=== PATIENT | male | born 1955 | race Caucasian/White ===

== ENCOUNTER → 2016-09-07 | Outpatient (CLI) | payer MEDICAID ==
[~2016-09-07] VITALS: Ht 205.7 cm; Wt 122.5 kg
[~2016-09-07] MED LIST: AMIO100T3 OR; ASPI-231 PO; ESCI10TA PO; LORA2CON PO; LOSA25TA9 PO; SPIR50TA23 PO; ZOLP5TAB5 PO
[2016-09-07 09:10] VITALS: BP 101/64
[2016-09-07 09:35] VITALS: BP 110/59
[2016-09-07 12:17] LABS: Basophils # (auto) 0.1 uL; Basophils % (auto) 0.6 % (0.0-2.0); Eosinophils # (auto) 0.2 uL; Eosinophils % (auto) 2.2 % (0.0-7.0); Hemoglobin 14.9 g/dL (13.5-17.5); Lymphocytes % (auto) 20.4 % (10.0-50.0); Mean Corpuscular Hemoglobin 31.2 pg (28.0-32.0); Mean Corpuscular Hgb Conc. 33.2 g/dL (32.0-36.0); Mean Platelet Volume 10.9 fL (7.4-10.4); Monocytes # (auto) 0.8 uL; Monocytes % (auto) 8.2 % (0.0-12.0); Neutrophils # (auto) 6.8 uL; Neutrophils % (auto) 68.6 % (37.0-80.0); Platelet Count (auto) 232 10^3/uL (140-450); Red Cell Distribution Width 13.7 % (11.6-16.0); White Blood Cell 9.9 10^3/uL (4.4-10.8)
[2016-09-07 12:23] LABS: Partial Thromboplastin Time 25.5 sec (22.64-33.71); Prothrombin Time 10.3 sec (9.37-12.3)
[2016-09-07 12:36] LABS: BUN/Creatinine Ratio 21.7; Calcium 9.2 mg/dL (8.5-10.1); Potassium 4.5 mmol/L (3.5-5.1)
== END | disposition home or self-care (01) ==
LOC: Rad HDHVI 08:58
PROVIDERS: ATTEND Internal Medicine Cardiovascular Disease
DX: I10 Essential (primary) hypertension (principal); D64.9 Anemia, unspecified; R79.1 Abnormal coagulation profile
CPT/HCPCS: 36415; 71020; 80048; 85025; 85610; 85730; 93005; G0463

== ENCOUNTER 2016-10-11 18:16 | Inpatient (IN) | payer MEDICAID ==
[~2016-10-11] VITALS: Ht 205.7 cm; Wt 125.9 kg
[2016-10-11 19:43] LABS: Basophils # (auto) 0 uL; Basophils % (auto) 0.4 % (0.0-2.0); Eosinophils # (auto) 0.2 uL; Eosinophils % (auto) 1.6 % (0.0-7.0); Hematocrit 44.7 % (41.0-53.0); Hemoglobin 15.2 g/dL (13.5-17.5); Lymphocytes # (auto) 2.5 uL; Lymphocytes % (auto) 25.7 % (10.0-50.0); Mean Corpuscular Hemoglobin 31.5 pg (28.0-32.0); Mean Corpuscular Hgb Conc. 33.9 g/dL (32.0-36.0); Mean Corpuscular Volume 93.1 fL (80.0-100.0); Mean Platelet Volume 10.7 fL (7.4-10.4); Monocytes # (auto) 0.8 uL; Neutrophils # (auto) 6.4 uL; Neutrophils % (auto) 64.3 % (37.0-80.0); Platelet Count (auto) 208 10^3/uL (140-450); Red Cell Distribution Width 13.6 % (11.6-16.0); White Blood Cell 9.9 10^3/uL (4.4-10.8)
[2016-10-11 20:04] LABS: Albumin 3.8 g/dL (3.4-5.0); Anion Gap 7 (5-15); Aspartate Aminotransferase 29 U/L (15-37); BUN/Creatinine Ratio 17.7; Blood Urea Nitrogen 29 mg/dL (7-18); Calcium 8.4 mg/dL (8.5-10.1); Carbon Dioxide 24 mmol/L (21-32); Chloride 104 mmol/L (98-107); GFR African American 55 mL/min; GFR Non-African American 46 mL/min; Glucose 87 mg/dL (74-106); Magnesium 2.4 mg/dL (1.6-2.6); Potassium 4.5 mmol/L (3.5-5.1); Sodium 135 mmol/L (136-145)
[2016-10-11 20:09] LABS: Alkaline Phosphatase 100 U/L (45-117); Bilirubin, Total 0.7 mg/dL (0.2-1.0); Total Protein 7.2 g/dL (6.4-8.2)
[2016-10-11] MEDS ORDERED: SODIUM CHLORIDE 0.9% 1,000 ML IV ONE (21:10)
[2016-10-11] MEDS ORDERED: ASPirin 81 mg TAB PO ONE (21:15)
[2016-10-12] VITALS (7 sets, daily range): BP systolic 102–129; BP diastolic 75–87
[2016-10-12] MEDS ORDERED: AMIODARONE HCL 200 MG TAB PO ONE (01:00)
[2016-10-12] MEDS ORDERED: ACETAMINOPHEN 325 MG TAB PO PRN (05:15)
[2016-10-12] MEDS ORDERED: SPIRONOLACTONE 25 MG TAB PO SCH (10:00)
[2016-10-12] MEDS ORDERED: ASPirin-EC 81 mg tab PO SCH (10:00)
[2016-10-12] MEDS ORDERED: AMIODARONE HCL 200 MG TAB PO SCH (10:00)
[2016-10-12] MEDS ORDERED: LOSARTAN POTASSIUM 25 MG TAB PO PRN (10:00)
[2016-10-12] MEDS ORDERED: LORazepam 0.5 MG TAB PO SCH (22:00)
[2016-10-12] MEDS ORDERED: ZOLPIDEM TARTRATE 5 MG TAB PO SCH (22:00)
== END 2016-10-12 15:42 | disposition home or self-care (01) | DRG 204 ==
LOC: ER 18:16 → TELE 18:17 → TELE-WESTW 10-12 01:38
PROVIDERS: ADMIT Internal Medicine Cardiovascular Disease; ATTEND Internal Medicine Cardiovascular Disease
DX: R55 Syncope and collapse (principal); I11.0 Hypertensive heart disease with heart failure; I50.9 Heart failure, unspecified; R07.89 Other chest pain; I25.10 Atherosclerotic heart disease of native coronary artery without angina pectoris; G62.9 Polyneuropathy, unspecified; J44.9 Chronic obstructive pulmonary disease, unspecified; F41.9 Anxiety disorder, unspecified; H53.8 Other visual disturbances; Z87.891 Personal history of nicotine dependence; I25.2 Old myocardial infarction; Z79.899 Other long term (current) drug therapy; Z95.0 Presence of cardiac pacemaker; Z95.5 Presence of coronary angioplasty implant and graft
CPT/HCPCS: 36415; 70450; 71010; 80053; 83735; 84484; 85025; 87081; 93005; 93886; 96360; 96361; 99291

== ENCOUNTER → 2016-10-23 | Outpatient (CLI) | payer MEDICAID | END | disposition home or self-care (01) | LOC: Rad HDHVI 10:49 | PROVIDERS: ATTEND Internal Medicine Cardiovascular Disease | DX: I70.0 Atherosclerosis of aorta (principal); M47.814 Spondylosis without myelopathy or radiculopathy, thoracic region; Z95.0 Presence of cardiac pacemaker | CPT/HCPCS: 71020 ==

== ENCOUNTER → 2016-11-20 | Outpatient (CLI) | payer MEDICAID ==
[2016-11-20 10:15] VITALS: BP 108/75
[2016-11-20 11:00] VITALS: BP 104/71
[2016-11-20 12:19] LABS: Basophils # (auto) 0 uL; Basophils % (auto) 0.6 % (0.0-2.0); Eosinophils # (auto) 0.2 uL; Eosinophils % (auto) 1.8 % (0.0-7.0); Hematocrit 46.4 % (41.0-53.0); Hemoglobin 15.8 g/dL (13.5-17.5); Lymphocytes # (auto) 2.1 uL; Lymphocytes % (auto) 24.1 % (10.0-50.0); Mean Corpuscular Hemoglobin 31.6 pg (28.0-32.0); Mean Corpuscular Hgb Conc. 33.9 g/dL (32.0-36.0); Mean Corpuscular Volume 93.1 fL (80.0-100.0); Mean Platelet Volume 10.6 fL (7.4-10.4); Monocytes # (auto) 0.8 uL; Monocytes % (auto) 9.1 % (0.0-12.0); Neutrophils # (auto) 5.6 uL; Neutrophils % (auto) 64.4 % (37.0-80.0); Platelet Count (auto) 220 10^3/uL (140-450); White Blood Cell 8.7 10^3/uL (4.4-10.8)
[2016-11-20 12:41] LABS: INR 0.94 (0.9-1.15); Partial Thromboplastin Time 26.4 sec (22.64-33.71); Prothrombin Time 10.2 sec (9.37-12.3)
[2016-11-20 12:53] LABS: BUN/Creatinine Ratio 18.9; Calcium 8.8 mg/dL (8.5-10.1); Potassium 4.6 mmol/L (3.5-5.1)
== END | disposition home or self-care (01) ==
LOC: Rad HDHVI 09:51
PROVIDERS: ATTEND Internal Medicine Cardiovascular Disease
DX: I10 Essential (primary) hypertension (principal); D64.9 Anemia, unspecified; R79.1 Abnormal coagulation profile; Z01.812 Encounter for preprocedural laboratory examination
CPT/HCPCS: 36415; 71020; 80048; 85025; 85610; 85730; 93005; G0463

== ENCOUNTER → 2016-11-30 | Outpatient (CLI) | payer MEDICAID ==
[~2016-11-30] MED LIST changes: +diphenhdrAMINE HCL 50 MG/1 ML VL IM ONE; +diphenhdrAMINE HCL 50 MG/1 ML VL ONE
[2016-11-30 11:15] VITALS: BP 98/65
[2016-11-30 12:15] VITALS: BP 121/81
[2016-11-30 17:12] LABS: Basophils # (auto) 0 uL; Basophils % (auto) 0.5 % (0.0-2.0); Eosinophils # (auto) 0.1 uL; Eosinophils % (auto) 1.4 % (0.0-7.0); Hematocrit 46.5 % (41.0-53.0); Lymphocytes # (auto) 1.8 uL; Mean Corpuscular Hemoglobin 32.3 pg (28.0-32.0); Mean Corpuscular Hgb Conc. 34.4 g/dL (32.0-36.0); Mean Platelet Volume 10.7 fL (7.4-10.4); Monocytes # (auto) 0.9 uL; Monocytes % (auto) 10.5 % (0.0-12.0); Neutrophils # (auto) 5.6 uL; Neutrophils % (auto) 66.6 % (37.0-80.0); Platelet Count (auto) 218 10^3/uL (140-450); Red Cell Distribution Width 13.5 % (11.6-16.0); White Blood Cell 8.5 10^3/uL (4.4-10.8)
[2016-11-30 17:13] LABS: Urine Bilirubin Negative (Negative); Urine Blood Negative /uL (Negative); Urine Color Yellow (Yellow); Urine Glucose Normal (Normal); Urine Ketone Negative (Negative); Urine Nitrite Negative (Negative); Urine Urobilinogen Normal (Negative); Urine pH 6.5 (5.0-8.0)
[2016-11-30 17:30] LABS: BUN/Creatinine Ratio 19.3; Magnesium 2.4 mg/dL (1.6-2.6); Potassium 4.6 mmol/L (3.5-5.1)
== END | disposition home or self-care (01) ==
LOC: CHF HDHVI 11:14
PROVIDERS: ATTEND Internal Medicine Cardiovascular Disease
DX: I10 Essential (primary) hypertension (principal); E83.42 Hypomagnesemia; D64.9 Anemia, unspecified; N39.0 Urinary tract infection, site not specified
CPT/HCPCS: 36415; 80048; 81003; 83735; 85025; 87086; G0463

== ENCOUNTER → 2017-01-13 | Outpatient (CLI) | payer MEDICAID ==
[~2017-01-13] MED LIST changes: -diphenhdrAMINE HCL 50 MG/1 ML VL IM ONE; -diphenhdrAMINE HCL 50 MG/1 ML VL ONE
== END | disposition home or self-care (01) ==
LOC: Rad HDHVI 08:54
PROVIDERS: ATTEND Internal Medicine Cardiovascular Disease
DX: I10 Essential (primary) hypertension (principal); I49.5 Sick sinus syndrome
CPT/HCPCS: 93306

== ENCOUNTER 2017-02-08 15:45 | Inpatient (IN) | payer MEDICAID ==
[~2017-02-08] VITALS: Ht 205.7 cm; Wt 133.2 kg
[~2017-02-08 15:45] MED LIST changes: -AMOX; -HYDR-4663 PO; -LOSARTAN; -SPIR25TA89 PO; -ZOLP12.564 PO
[2017-02-08] MEDS ORDERED: SPIR25TA89 PO (16:01)
[2017-02-08] MEDS ORDERED: LOSARTAN (16:01)
[2017-02-08] MEDS ORDERED: AMOX (16:01)
[2017-02-08] MEDS ORDERED: ASPirin 81 mg TAB PO ONE (16:45)
[2017-02-08 17:05] LABS: Basophils # (auto) 0 uL; Basophils % (auto) 0.4 % (0.0-2.0); Eosinophils # (auto) 0.1 uL; Eosinophils % (auto) 1.4 % (0.0-7.0); Hematocrit 47.1 % (41.0-53.0); Lymphocytes # (auto) 2.5 uL; Lymphocytes % (auto) 25.2 % (10.0-50.0); Monocytes # (auto) 0.9 uL; Monocytes % (auto) 9.4 % (0.0-12.0); Neutrophils # (auto) 6.2 uL; Neutrophils % (auto) 63.6 % (37.0-80.0); White Blood Cell 9.8 10^3/uL (4.4-10.8)
[2017-02-08 17:06] LABS: CONDITION Y; Mean Corpuscular Volume 94.2 fL (80.0-100.0); Mean Platelet Volume 9.5 fL (7.4-10.4); Platelet Count (auto) 242 10^3/uL (140-450); Red Cell Distribution Width 13.6 % (11.6-16.0)
[2017-02-08 17:23] LABS: INR 0.95 (0.9-1.15); Partial Thromboplastin Time 25.8 sec (22.64-33.71); Prothrombin Time 10.4 sec (9.37-12.3)
[2017-02-08] MEDS ORDERED: MORPHINE SULF INJ 2 MG/ML SYRINGE 1ML IV PRN (17:30)
[2017-02-08] MEDS ORDERED: ZOLPIDEM TARTRATE 5 MG TAB PO PRN (17:30)
[2017-02-08] MEDS ORDERED: NITROGLYCERIN 0.4 MG SL TAB SL PRN (17:30)
[2017-02-08] MEDS ORDERED: HYDROcodone-ACET 5/325MG TAB PO PRN (17:30)
[2017-02-08 17:42] LABS: Albumin 3.8 g/dL (3.4-5.0); Alkaline Phosphatase 105 U/L (45-117); Anion Gap 8 (5-15); Aspartate Aminotransferase 25 U/L (15-37); BUN/Creatinine Ratio 17.5; Bilirubin, Total 1.1 mg/dL (0.2-1.0); Blood Urea Nitrogen 24 mg/dL (7-18); Calcium 8.9 mg/dL (8.5-10.1); Carbon Dioxide 25 mmol/L (21-32); Chloride 101 mmol/L (98-107); GFR African American 68 mL/min; GFR Non-African American 56 mL/min; Glucose 99 mg/dL (74-106); Magnesium 2.4 mg/dL (1.6-2.6); Potassium 4.4 mmol/L (3.5-5.1); Sodium 134 mmol/L (136-145); Total Protein 7.5 g/dL (6.4-8.2)
[2017-02-08 17:54] LABS: B-Type Natriuretic Peptide 3.28 pg/mL (0-100)
[2017-02-08 17:59] LABS: Temperature: 22.3 C (20.0-25.0)
[2017-02-08 20:45] VITALS: BP 108/71
[2017-02-09] MEDS ORDERED: ZOLP12.564 PO (00:03)
[2017-02-09] MEDS ORDERED: LOSA25TA9 PO (00:03)
[2017-02-09] MEDS ORDERED: HYDR-4663 PO (00:03)
[2017-02-09 05:20] VITALS: BP 93/52
[2017-02-09 08:00] VITALS: BP 129/79
[2017-02-09 08:57] LABS: Anion Gap 5 (5-15); BUN/Creatinine Ratio 16.9; Blood Urea Nitrogen 22 mg/dL (7-18); Calcium 8.6 mg/dL (8.5-10.1); Carbon Dioxide 29 mmol/L (21-32); Chloride 102 mmol/L (98-107); GFR African American 72 mL/min; GFR Non-African American 60 mL/min; Glucose 119 mg/dL (74-106); Magnesium 2.4 mg/dL (1.6-2.6); Sodium 136 mmol/L (136-145)
[2017-02-09] MEDS: ASPirin 81 mg TAB PO SCH (09:49)
[2017-02-09] MEDS: CITALOPRAM HYDROBR 20 MG TAB PO SCH (09:49)
[2017-02-09] MEDS: FAMOTIDINE 20 MG TAB PO SCH (09:52)
[2017-02-09 12:00] VITALS: BP 115/71
[2017-02-09 17:00] VITALS: BP 119/67
[2017-02-09 22:00] VITALS: BP 127/85
[2017-02-10 05:00] VITALS: BP 106/71
[2017-02-10 08:00] VITALS: BP 107/73
[2017-02-10] MEDS: FAMOTIDINE 20 MG TAB PO SCH (09:28)
[2017-02-10] MEDS: CITALOPRAM HYDROBR 20 MG TAB PO SCH (09:28)
[2017-02-10] MEDS: ASPirin 81 mg TAB PO SCH (09:28)
[2017-02-10 12:25] VITALS: BP 137/84
== END 2017-02-10 11:30 | disposition home or self-care (01) | DRG 203 ==
LOC: ER 15:45 → TELE 15:46 → TELE-CENTR 20:47
PROVIDERS: ADMIT Internal Medicine; ATTEND Internal Medicine
DX: R07.89 Other chest pain (principal); I13.0 Hypertensive heart and chronic kidney disease with heart failure and stage 1 through stage 4 chronic kidney disease, or unspecified chronic kidney disease; I50.42 Chronic combined systolic (congestive) and diastolic (congestive) heart failure; I49.5 Sick sinus syndrome; E78.5 Hyperlipidemia, unspecified; F41.9 Anxiety disorder, unspecified; J44.9 Chronic obstructive pulmonary disease, unspecified; E66.9 Obesity, unspecified; N18.3 Chronic kidney disease, stage 3 (moderate); Z95.0 Presence of cardiac pacemaker; Z68.31 Body mass index [BMI] 31.0-31.9, adult
CPT/HCPCS: 36415; 71010; 78582; 80048; 80053; 83735; 83880; 84484; 85025; 85379; 85610; 85730; 93005; 99291

== ENCOUNTER → 2017-02-08 | Outpatient (CLI) | payer MEDICAID ==
[~2017-02-08] MED LIST changes: +AMOX; +HYDR-4663 PO; +LOSARTAN; +SPIR25TA89 PO; +ZOLP12.564 PO
[2017-02-08 15:10] VITALS: BP 114/81
[2017-02-08 15:30] VITALS: BP 118/85
== END | disposition home or self-care (01) ==
LOC: CHF HDHVI 15:05
PROVIDERS: ATTEND Internal Medicine Cardiovascular Disease
DX: I11.0 Hypertensive heart disease with heart failure (principal); I50.9 Heart failure, unspecified; J44.9 Chronic obstructive pulmonary disease, unspecified
CPT/HCPCS: 82962; 93005; G0463

== ENCOUNTER → 2017-02-19 | Outpatient (CLI) | payer MEDICAID ==
[~2017-02-19] MED LIST changes: -AMIO100T3 OR; +AMOX; +HYDR-4663 PO; +LOSARTAN; +SPIR25TA89 PO; -SPIR50TA23 PO; +ZOLP12.564 PO
[2017-02-19 15:00] VITALS: BP 108/70
[2017-02-19 15:40] VITALS: BP 114/76
== END | disposition home or self-care (01) ==
LOC: CHF HDHVI 15:05
PROVIDERS: ATTEND Internal Medicine Cardiovascular Disease
DX: I11.0 Hypertensive heart disease with heart failure (principal); I50.9 Heart failure, unspecified; J44.9 Chronic obstructive pulmonary disease, unspecified
CPT/HCPCS: G0463

== ENCOUNTER → 2017-03-11 | Outpatient (CLI) | payer MEDICAID ==
[~2017-03-11] VITALS: Ht 175.3 cm; Wt 128.8 kg
[~2017-03-11] MED LIST changes: +ADENOSINE 108 MG in GIVE UN-DILUTED 0 ML IV ONE; +ADENOSINE 90 MG/30 ML INJ IV ONE
[2017-03-11 15:00] VITALS: BP 113/81
[2017-03-11 15:24] VITALS: BP 120/76
== END | disposition home or self-care (01) ==
LOC: Rad HDHVI 13:52
PROVIDERS: ATTEND Internal Medicine Cardiovascular Disease
DX: I11.0 Hypertensive heart disease with heart failure (principal); I50.42 Chronic combined systolic (congestive) and diastolic (congestive) heart failure; J44.9 Chronic obstructive pulmonary disease, unspecified; I25.10 Atherosclerotic heart disease of native coronary artery without angina pectoris; E78.5 Hyperlipidemia, unspecified; I49.5 Sick sinus syndrome; Z95.0 Presence of cardiac pacemaker
CPT/HCPCS: 78452; 93005; 96374; 96375; A9500; G0463; J0153

== ENCOUNTER → 2017-04-08 | Outpatient (CLI) | payer MEDICAID ==
[~2017-04-08] MED LIST changes: -ADENOSINE 108 MG in GIVE UN-DILUTED 0 ML IV ONE; -ADENOSINE 90 MG/30 ML INJ IV ONE; -HYDR-4663 PO; +HYDR-4683 PO
== END | disposition home or self-care (01) ==
LOC: Rad HDHVI 13:43
PROVIDERS: ATTEND Internal Medicine Cardiovascular Disease
DX: I50.23 Acute on chronic systolic (congestive) heart failure (principal); J44.9 Chronic obstructive pulmonary disease, unspecified
CPT/HCPCS: 93306

== ENCOUNTER → 2017-05-28 | Outpatient (CLI) | payer MEDICAID ==
[2017-05-28 12:00] VITALS: BP 109/71
[2017-05-28 14:24] LABS: Basophils # (auto) 0 uL; Basophils % (auto) 0.6 % (0.0-2.0); Eosinophils # (auto) 0.3 uL; Hematocrit 44.3 % (41.0-53.0); Hemoglobin 15.4 g/dL (13.5-17.5); Lymphocytes # (auto) 1.7 uL; Lymphocytes % (auto) 20.4 % (10.0-50.0); Mean Corpuscular Hemoglobin 32.9 pg (28.0-32.0); Mean Corpuscular Hgb Conc. 34.8 g/dL (32.0-36.0); Mean Corpuscular Volume 94.6 fL (80.0-100.0); Mean Platelet Volume 9.9 fL (6.9-10.8); Monocytes # (auto) 0.8 uL; Monocytes % (auto) 9.5 % (0.0-12.0); Neutrophils # (auto) 5.5 uL; Neutrophils % (auto) 65.5 % (37.0-80.0); Nucleated Red Blood Cells % 0.2 %; Platelet Count (auto) 183 10^3/uL (140-450); Red Cell Distribution Width 13.4 % (11.8-14.3); White Blood Cell 8.4 10^3/uL (4.4-10.8)
[2017-05-28 14:35] VITALS: BP 124/88
[2017-05-28 14:43] LABS: Magnesium 2.3 mg/dL (1.6-2.6); Potassium 4.3 mmol/L (3.5-5.1)
== END | disposition home or self-care (01) ==
LOC: CHF HDHVI 12:08
PROVIDERS: ATTEND Internal Medicine Cardiovascular Disease
DX: I48.91 Unspecified atrial fibrillation (principal); E78.5 Hyperlipidemia, unspecified; D64.9 Anemia, unspecified; R00.2 Palpitations; E83.42 Hypomagnesemia; Z79.899 Other long term (current) drug therapy
CPT/HCPCS: 36415; 80162; 83735; 84132; 85025; G0463

== ENCOUNTER → 2017-08-19 | Outpatient (CLI) | payer MEDICAID ==
[~2017-08-19] MED LIST changes: +ALBUAER3 IN; +LEVO750T2 PO; +ONDANSETRON HCL 4 MG/2 ML VIAL IM ONE; +ONDANSETRON HCL 4 MG/2 ML VIAL ONE
[2017-08-19 16:00] VITALS: BP 120/80
[2017-08-19 17:26] LABS: Basophils # (auto) 0 uL; Basophils % (auto) 0.3 % (0.0-2.0); Eosinophils # (auto) 1.1 uL; Hematocrit 48.4 % (41.0-53.0); Hemoglobin 16.4 g/dL (13.5-17.5); Lymphocytes # (auto) 2.8 uL; Mean Corpuscular Hemoglobin 31.8 pg (28.0-32.0); Mean Corpuscular Hgb Conc. 33.9 g/dL (32.0-36.0); Mean Corpuscular Volume 93.7 fL (80.0-100.0); Monocytes # (auto) 0.6 uL; Monocytes % (auto) 6.1 % (0.0-12.0); Neutrophils # (auto) 5.8 uL; Neutrophils % (auto) 55.6 % (37.0-80.0); Nucleated Red Blood Cells % 0.3 %; Platelet Count (auto) 188 10^3/uL (140-450); Red Blood Cells 5.17 10^6/uL (4.5-5.90); White Blood Cell 10.4 10^3/uL (4.4-10.8)
== END | disposition home or self-care (01) ==
LOC: CHF HDHVI 15:02
PROVIDERS: ATTEND Internal Medicine Cardiovascular Disease
DX: D64.9 Anemia, unspecified (principal); I48.91 Unspecified atrial fibrillation; Z79.899 Other long term (current) drug therapy
CPT/HCPCS: 36415; 80162; 85025; 93005; 96374; G0463; J2405

== ENCOUNTER → 2017-09-20 | Outpatient (CLI) | payer MEDICAID ==
[~2017-09-20] MED LIST changes: -ONDANSETRON HCL 4 MG/2 ML VIAL IM ONE; -ONDANSETRON HCL 4 MG/2 ML VIAL ONE
[2017-09-20 11:30] VITALS: BP 99/74
[2017-09-20 12:20] VITALS: BP 111/74
== END | disposition home or self-care (01) ==
LOC: CHF HDHVI 10:58
PROVIDERS: ATTEND Internal Medicine Cardiovascular Disease
DX: I51.7 Cardiomegaly (principal); I70.0 Atherosclerosis of aorta; I25.10 Atherosclerotic heart disease of native coronary artery without angina pectoris; I48.91 Unspecified atrial fibrillation
CPT/HCPCS: 71046; G0463

== ENCOUNTER → 2017-10-15 | Outpatient (CLI) | payer MEDICAID ==
[~2017-10-15] MED LIST changes: -AMOX; -LOSARTAN; -ZOLP12.564 PO
[2017-10-15 12:15] VITALS: BP 107/75
[2017-10-15 12:45] VITALS: BP 108/75
== END | disposition home or self-care (01) ==
LOC: CHF HDHVI 12:17
PROVIDERS: ATTEND Internal Medicine Cardiovascular Disease
DX: I42.9 Cardiomyopathy, unspecified (principal); K57.92 Diverticulitis of intestine, part unspecified, without perforation or abscess without bleeding; G47.00 Insomnia, unspecified; I12.9 Hypertensive chronic kidney disease with stage 1 through stage 4 chronic kidney disease, or unspecified chronic kidney disease; N18.2 Chronic kidney disease, stage 2 (mild); I48.91 Unspecified atrial fibrillation; E78.5 Hyperlipidemia, unspecified; Z79.899 Other long term (current) drug therapy; Z95.0 Presence of cardiac pacemaker
CPT/HCPCS: G0463

== ENCOUNTER → 2017-10-28 | Outpatient (CLI) | payer MEDICAID | END | disposition home or self-care (01) | LOC: Rad HDHVI 15:50 | PROVIDERS: ATTEND Internal Medicine Cardiovascular Disease | DX: I42.0 Dilated cardiomyopathy (principal); I13.0 Hypertensive heart and chronic kidney disease with heart failure and stage 1 through stage 4 chronic kidney disease, or unspecified chronic kidney disease; N18.2 Chronic kidney disease, stage 2 (mild); I50.43 Acute on chronic combined systolic (congestive) and diastolic (congestive) heart failure; J44.0 Chronic obstructive pulmonary disease with (acute) lower respiratory infection | CPT/HCPCS: 93306 ==

== ENCOUNTER → 2017-11-02 | Outpatient (CLI) | payer MEDICAID ==
[2017-11-02 11:00] VITALS: BP 96/71
[2017-11-02 12:30] VITALS: BP 107/77
[2017-11-02 16:00] LABS: Basophils # (auto) 0.1 uL; Eosinophils # (auto) 0.4 uL; Eosinophils % (auto) 4.4 % (0.0-7.0); Hematocrit 49.7 % (41.0-53.0); Hemoglobin 17.1 g/dL (13.5-17.5); Lymphocytes # (auto) 2.1 uL; Mean Corpuscular Hemoglobin 31.8 pg (28.0-32.0); Mean Corpuscular Hgb Conc. 34.3 g/dL (32.0-36.0); Mean Corpuscular Volume 92.6 fL (80.0-100.0); Monocytes # (auto) 0.8 uL; Monocytes % (auto) 10.1 % (0.0-12.0); Neutrophils # (auto) 4.7 uL; Neutrophils % (auto) 58.5 % (37.0-80.0); Nucleated Red Blood Cells % 0.8 %; Platelet Count (auto) 199 10^3/uL (140-450); Red Blood Cells 5.37 10^6/uL (4.5-5.90); Red Cell Distribution Width 13.8 % (11.8-14.3)
[2017-11-02 16:13] LABS: BUN/Creatinine Ratio 19.3; Magnesium 2.4 mg/dL (1.6-2.6); Potassium 4.5 mmol/L (3.5-5.1)
== END | disposition home or self-care (01) ==
LOC: CHF HDHVI 11:14
PROVIDERS: ATTEND Internal Medicine Cardiovascular Disease
DX: I13.0 Hypertensive heart and chronic kidney disease with heart failure and stage 1 through stage 4 chronic kidney disease, or unspecified chronic kidney disease (principal); I50.23 Acute on chronic systolic (congestive) heart failure; N18.3 Chronic kidney disease, stage 3 (moderate); I25.10 Atherosclerotic heart disease of native coronary artery without angina pectoris; J44.9 Chronic obstructive pulmonary disease, unspecified; E78.5 Hyperlipidemia, unspecified; E78.00 Pure hypercholesterolemia, unspecified; D64.9 Anemia, unspecified; Z79.899 Other long term (current) drug therapy
CPT/HCPCS: 36415; 80048; 83735; 85025; 93005; G0463

== ENCOUNTER → 2017-11-08 | Outpatient (CLI) | payer MEDICAID ==
[~2017-11-08] MED LIST changes: +ADENOSINE 107 MG in GIVE UN-DILUTED 0 ML IV ONE; +ADENOSINE 90 MG/30 ML INJ IV ONE
== END | disposition home or self-care (01) ==
LOC: Rad HDHVI 14:17
PROVIDERS: ATTEND Internal Medicine Cardiovascular Disease
DX: E78.00 Pure hypercholesterolemia, unspecified (principal); I25.10 Atherosclerotic heart disease of native coronary artery without angina pectoris; I13.0 Hypertensive heart and chronic kidney disease with heart failure and stage 1 through stage 4 chronic kidney disease, or unspecified chronic kidney disease; N18.2 Chronic kidney disease, stage 2 (mild); I50.43 Acute on chronic combined systolic (congestive) and diastolic (congestive) heart failure; J44.1 Chronic obstructive pulmonary disease with (acute) exacerbation; E78.5 Hyperlipidemia, unspecified; Z79.899 Other long term (current) drug therapy; Z95.0 Presence of cardiac pacemaker
CPT/HCPCS: 78452; 93005; 96374; 96375; A9500; J0153

== ENCOUNTER → 2017-11-29 | Outpatient (CLI) | payer MEDICAID ==
[~2017-11-29] MED LIST changes: -ADENOSINE 107 MG in GIVE UN-DILUTED 0 ML IV ONE; -ADENOSINE 90 MG/30 ML INJ IV ONE; +CYANOCOBALAMIN (B-12) 1000 MCG/1 ML VIAL IM ONE; +CYANOCOBALAMIN (B-12) 1000 MCG/1 ML VIAL ONE
[2017-11-29 15:00] VITALS: BP 108/74
[2017-11-29 15:45] VITALS: BP 105/74
[2017-11-29 15:58] LABS: Basophils # (auto) 0.1 uL; Basophils % (auto) 1.2 % (0.0-2.0); Eosinophils # (auto) 0.3 uL; Hematocrit 47.3 % (41.0-53.0); Hemoglobin 16.1 g/dL (13.5-17.5); Lymphocytes # (auto) 3.1 uL; Lymphocytes % (auto) 35.6 % (10.0-50.0); Mean Corpuscular Hemoglobin 31.3 pg (28.0-32.0); Monocytes # (auto) 0.8 uL; Monocytes % (auto) 9.8 % (0.0-12.0); Neutrophils # (auto) 4.4 uL; Neutrophils % (auto) 50.4 % (37.0-80.0); Nucleated Red Blood Cells % 0.4 %; Platelet Count (auto) 176 10^3/uL (140-450); Red Blood Cells 5.14 10^6/uL (4.5-5.90); Red Cell Distribution Width 13.7 % (11.8-14.3); White Blood Cell 8.7 10^3/uL (4.4-10.8)
[2017-11-29 16:18] LABS: BUN/Creatinine Ratio 19.8; Calcium 8.6 mg/dL (8.5-10.1); Magnesium 2.5 mg/dL (1.6-2.6); Potassium 4.4 mmol/L (3.5-5.1)
== END | disposition home or self-care (01) ==
LOC: CHF HDHVI 14:51
PROVIDERS: ATTEND Internal Medicine Cardiovascular Disease
DX: I13.0 Hypertensive heart and chronic kidney disease with heart failure and stage 1 through stage 4 chronic kidney disease, or unspecified chronic kidney disease (principal); E83.40 Disorders of magnesium metabolism, unspecified; K44.9 Diaphragmatic hernia without obstruction or gangrene; I50.43 Acute on chronic combined systolic (congestive) and diastolic (congestive) heart failure; N18.2 Chronic kidney disease, stage 2 (mild); E78.5 Hyperlipidemia, unspecified; I25.10 Atherosclerotic heart disease of native coronary artery without angina pectoris; E78.00 Pure hypercholesterolemia, unspecified; J44.0 Chronic obstructive pulmonary disease with (acute) lower respiratory infection; J44.1 Chronic obstructive pulmonary disease with (acute) exacerbation; G47.00 Insomnia, unspecified; I48.91 Unspecified atrial fibrillation; R06.02 Shortness of breath; I42.0 Dilated cardiomyopathy; R09.89 Other specified symptoms and signs involving the circulatory and respiratory systems; R53.81 Other malaise; R53.83 Other fatigue; Z79.899 Other long term (current) drug therapy; Z95.0 Presence of cardiac pacemaker
CPT/HCPCS: 36415; 71046; 80048; 83735; 85025; 96372; G0463; J3420

== ENCOUNTER → 2018-01-04 | Outpatient (CLI) | payer MEDICAID ==
[~2018-01-04] MED LIST changes: -CYANOCOBALAMIN (B-12) 1000 MCG/1 ML VIAL IM ONE; -CYANOCOBALAMIN (B-12) 1000 MCG/1 ML VIAL ONE; +IOHEXOL 350 MG/ML 100ML IJ ONE; +KETOROLAC TROMETH 60MG/2ML VIAL IM ONE; +MVI in SODIUM CHLORIDE 0.9% 1,010 ML ONE; +MVI in SODIUM CHLORIDE 0.9% 500 ML IVB ONE
[2018-01-04 10:00] VITALS: BP 96/69
[2018-01-04 15:15] VITALS: BP 108/69
[2018-01-04 16:16] LABS: Basophils # (auto) 0.1 uL; Basophils % (auto) 0.5 % (0.0-2.0); Eosinophils # (auto) 0 uL; Eosinophils % (auto) 0.1 % (0.0-7.0); Hematocrit 44.8 % (41.0-53.0); Hemoglobin 15.3 g/dL (13.5-17.5); Lymphocytes # (auto) 1.2 uL; Lymphocytes % (auto) 11.5 % (10.0-50.0); Mean Corpuscular Hgb Conc. 34.2 g/dL (32.0-36.0); Mean Corpuscular Volume 93.5 fL (80.0-100.0); Monocytes # (auto) 0.6 uL; Monocytes % (auto) 6.4 % (0.0-12.0); Neutrophils # (auto) 8.3 uL; Neutrophils % (auto) 81.5 % (37.0-80.0); Nucleated Red Blood Cells % 0.5 %; Platelet Count (auto) 174 10^3/uL (140-450); Red Blood Cells 4.79 10^6/uL (4.5-5.90); Red Cell Distribution Width 14.2 % (11.8-14.3); White Blood Cell 10.2 10^3/uL (4.4-10.8)
[2018-01-04 16:21] LABS: Albumin 3.4 g/dL (3.4-5.0); Potassium 3.8 mmol/L (3.5-5.1)
[2018-01-04 16:23] LABS: BUN/Creatinine Ratio 13.1; Magnesium 2.2 mg/dL (1.6-2.6)
[2018-01-04 16:26] LABS: Bilirubin, Total 1.7 mg/dL (0.2-1.0); Total Protein 7.1 g/dL (6.4-8.2)
== END | disposition home or self-care (01) ==
LOC: CHF HDHVI 09:57
PROVIDERS: ATTEND Internal Medicine Cardiovascular Disease
DX: E86.0 Dehydration (principal); E83.40 Disorders of magnesium metabolism, unspecified; R11.2 Nausea with vomiting, unspecified; D64.9 Anemia, unspecified; R70.0 Elevated erythrocyte sedimentation rate; R51 Headache; I13.0 Hypertensive heart and chronic kidney disease with heart failure and stage 1 through stage 4 chronic kidney disease, or unspecified chronic kidney disease; N18.2 Chronic kidney disease, stage 2 (mild); I50.43 Acute on chronic combined systolic (congestive) and diastolic (congestive) heart failure; I25.10 Atherosclerotic heart disease of native coronary artery without angina pectoris; J44.0 Chronic obstructive pulmonary disease with (acute) lower respiratory infection; J44.1 Chronic obstructive pulmonary disease with (acute) exacerbation; E78.5 Hyperlipidemia, unspecified; E78.00 Pure hypercholesterolemia, unspecified; Z79.82 Long term (current) use of aspirin; Z79.899 Other long term (current) drug therapy
CPT/HCPCS: 36415; 80053; 82565; 83735; 85025; 85652; 96365; 96366; 96372; G0463; J1885; J3411; J3475; Q9967

== ENCOUNTER → 2018-02-08 | Outpatient (CLI) | payer MEDICAID ==
[~2018-02-08] MED LIST changes: -IOHEXOL 350 MG/ML 100ML IJ ONE; -KETOROLAC TROMETH 60MG/2ML VIAL IM ONE; +LOSA25TA40 PO; -LOSA25TA9 PO; -MVI in SODIUM CHLORIDE 0.9% 1,010 ML ONE; -MVI in SODIUM CHLORIDE 0.9% 500 ML IVB ONE; +SPIR25TA8 PO; -SPIR25TA89 PO
== END | disposition home or self-care (01) ==
LOC: Rad HDHVI 13:05
PROVIDERS: ATTEND Internal Medicine Cardiovascular Disease
DX: I11.0 Hypertensive heart disease with heart failure (principal); I50.23 Acute on chronic systolic (congestive) heart failure
CPT/HCPCS: 93880

== ENCOUNTER → 2018-05-02 | Outpatient (CLI) | payer MEDICAID ==
[~2018-05-02] MED LIST changes: +MAGNESIUM OXIDE 400 MG TAB ONE; +MAGNESIUM OXIDE 400 MG TAB PO ONE
[2018-05-02 15:33] VITALS: BP 102/74
[2018-05-02 16:30] VITALS: BP 132/75
== END | disposition home or self-care (01) ==
LOC: CHF HDHVI 15:34
PROVIDERS: ATTEND Internal Medicine Cardiovascular Disease
DX: I11.0 Hypertensive heart disease with heart failure (principal); I50.9 Heart failure, unspecified; I48.91 Unspecified atrial fibrillation
CPT/HCPCS: 93005; G0463

== ENCOUNTER → 2018-05-25 | Outpatient (CLI) | payer MEDICAID ==
[~2018-05-25] MED LIST changes: +DIGO0.1220 PO; +FLUD0.1T2 PO; +MAGN400T5 OR; -MAGNESIUM OXIDE 400 MG TAB ONE; -MAGNESIUM OXIDE 400 MG TAB PO ONE; +PANT40TA2 PO; +RIVA20TA PO; +SOTA80TA PO
[2018-05-25 08:35] VITALS: BP 103/77
[2018-05-25 09:00] VITALS: BP 122/68
[2018-05-25 12:07] LABS: Potassium 4.5 mmol/L (3.5-5.1)
[2018-05-25 12:08] LABS: BUN/Creatinine Ratio 13.4; Calcium 8.9 mg/dL (8.5-10.1)
[2018-05-25 12:12] LABS: Hematocrit 48.5 % (41.0-53.0); Hemoglobin 16.7 g/dL (13.5-17.5); Mean Corpuscular Hemoglobin 32.4 pg (28.0-32.0); Mean Corpuscular Hgb Conc. 34.5 g/dL (32.0-36.0); Mean Corpuscular Volume 94.1 fL (80.0-100.0); Platelet Count (auto) 167 10^3/uL (140-450); Red Blood Cells 5.16 10^6/uL (4.5-5.90); White Blood Cell 8.1 10^3/uL (4.4-10.8)
[2018-05-25 12:18] LABS: Band Neutrophils % (manual) 0; Blast Cells 0; INR 0.93 (0.9-1.15); Metamyelocytes % 0; Myelocytes % 0; Partial Thromboplastin Time 28.5 sec (23.78-33.04); Promyelocytes % 0; Reactive Lymphocytes 0
[2018-05-25 13:27] LABS: Basophils % (manual) 1 (0.0-2.0); Eosinophils % (manual) 5 (0-7); Lymphocytes % (manual) 28 (10.0-50.0); Monocytes % (manual) 10 (0-12)
== END | disposition home or self-care (01) ==
LOC: Rad HDHVI 08:14
PROVIDERS: ATTEND Internal Medicine Cardiovascular Disease
DX: Z01.818 Encounter for other preprocedural examination (principal); I51.7 Cardiomegaly; I70.0 Atherosclerosis of aorta; K44.9 Diaphragmatic hernia without obstruction or gangrene; D64.9 Anemia, unspecified; R79.1 Abnormal coagulation profile; I10 Essential (primary) hypertension
CPT/HCPCS: 36415; 71046; 80048; 85007; 85027; 85610; 85730; 93005; G0463

== ENCOUNTER 2018-05-31 11:58 | Day surgery (SDC) | payer MEDICAID ==
[~2018-05-31] VITALS: Ht 205.7 cm; Wt 131.5 kg
[~2018-05-31 11:58] MED LIST changes: -ALBUAER3 IN; -LEVO750T2 PO; -LORA2CON PO; -LOSA25TA40 PO; -SPIR25TA8 PO
[2018-05-31] MEDS ORDERED: fentaNYL CITRATE 100 MCG/2 ML VL IV ONE (12:30)
[2018-05-31] MEDS ORDERED: MIDAZOLAM HCL 5 MG/ML-1ML VIAL IV ONE (12:30)
[2018-05-31] MEDS ORDERED: MIDAZOLAM HCL 1MG/1ML-2 ML VIAL ONE (12:37)
[2018-05-31] MEDS ORDERED: FLUMAZENIL 0.1 MG/ML INJ 10ML MDV IV ONE (12:45)
[2018-05-31] MEDS ORDERED: NALOXONE HCL 0.4 MG/ML VIAL IV ONE (12:45)
== END 2018-05-31 15:00 | disposition home or self-care (01) ==
LOC: CATH 11:58
PROVIDERS: ATTEND Internal Medicine Cardiovascular Disease
DX: I48.91 Unspecified atrial fibrillation (principal); I42.0 Dilated cardiomyopathy; I49.5 Sick sinus syndrome; I11.0 Hypertensive heart disease with heart failure; J44.9 Chronic obstructive pulmonary disease, unspecified; F41.9 Anxiety disorder, unspecified; F32.9 Major depressive disorder, single episode, unspecified; G62.9 Polyneuropathy, unspecified; I25.2 Old myocardial infarction; Z95.0 Presence of cardiac pacemaker; Z83.3 Family history of diabetes mellitus; Z87.891 Personal history of nicotine dependence
CPT/HCPCS: 92960; J7040; 99152; J2250

== ENCOUNTER → 2018-07-19 | Outpatient (CLI) | payer MEDICAID ==
[2018-07-19 13:25] VITALS: BP 89/68
--- NOTE | 2018-07-19 13:25 | NUR ---
CHF PT TO CHF CLINIC C/O IRREGULAR HR AND SOB . RECENT INCREASE IN DIGOXIN TO 250 MCG ABOUT A MONTH AGO. DR. GARCIA
--- NOTE | 2018-07-19 15:07 | NUR ---
CHF Discharge Instructions See e-MAR for any mediations given with this visit. Patient education given on disease process. CHEST X RAY, EKG, AND PACEMAKER INTERROGATION OBTAINED. Patient verbalized understanding. Previous labs reviewed. Patient discharged in stable condition with after care instructions and follow up appointment. FOLLOW UP WITH DR. GARCIA SCHEDULED.
== END | disposition home or self-care (01) ==
LOC: CHF HDHVI 13:24
PROVIDERS: ATTEND Internal Medicine Cardiovascular Disease
DX: K44.9 Diaphragmatic hernia without obstruction or gangrene (principal); I48.91 Unspecified atrial fibrillation; I11.0 Hypertensive heart disease with heart failure; I50.9 Heart failure, unspecified; Z79.899 Other long term (current) drug therapy
CPT/HCPCS: 36415; 71046; 80162; 93005; G0463

== ENCOUNTER → 2018-09-15 | Outpatient (CLI) | payer MEDICAID ==
[~2018-09-15] MED LIST changes: +CYANOCOBALAMIN (B-12) 1000 MCG/1 ML VIAL IM ONE; +CYANOCOBALAMIN (B-12) 1000 MCG/1 ML VIAL ONE
[2018-09-15 12:00] VITALS: BP 109/79
[2018-09-15 14:13] VITALS: BP 96/76
--- NOTE | 2018-09-15 14:13 | NUR ---
IN TO CLINIC FOR REPORTS OF ELEVATED HEART RATE AT HOME WITH FATIGUE AND WEAKNESS. LABS AT [facility] REVIEWED FROM THIS WEEK. LAST DOCTORS NOTE REVIEWED. AFIB CHRONIC AND PT IS CURRENTLY ON 2 MEDICATIONS FOR AFIB. NO ELECTROLYTE REPLACEMENT NEEDED. NOT IN AFIB AT THIS TIME. VERIFIED LIST OF MEDICATIONS AND CLINIC PROVIDER CONSULTED. DISCHARGED TO CARE OF IN NO DISTRESS OR DISCOMFORT.
--- NOTE | 2018-09-15 15:45 | NUR ---
NEW ORDERS FROM DR GARCIA FOR AFIB. START TOPROL 25 MG PO BID
== END | disposition home or self-care (01) ==
LOC: CHF HDHVI 10:50
PROVIDERS: ATTEND Internal Medicine Cardiovascular Disease
DX: I11.0 Hypertensive heart disease with heart failure (principal); R53.83 Other fatigue; I50.9 Heart failure, unspecified; I48.91 Unspecified atrial fibrillation; Z79.899 Other long term (current) drug therapy
CPT/HCPCS: 96372; G0463; J3420

== ENCOUNTER → 2018-10-31 | Outpatient (CLI) | payer MEDICAID ==
[~2018-10-31] MED LIST changes: -CYANOCOBALAMIN (B-12) 1000 MCG/1 ML VIAL IM ONE; -CYANOCOBALAMIN (B-12) 1000 MCG/1 ML VIAL ONE
[2018-10-31 14:51] VITALS: BP 95/67
--- NOTE | 2018-10-31 14:51 | NUR ---
CHF PT ARRIVED TO THE CHF CLINIC FOR LOW BP CHECK. V/S OBTAINED LEFT ARM 95/67 RIGHT ARM 88/63. PT A/O X 3 0 DISTRESS, LABS DRAWN AND EKG DONE
--- NOTE | 2018-10-31 16:00 | NUR ---
EDUCATION PT EDUCATED ON CPAP USE, SLEEP, NUTRITION, SLOW RISE UPON AWAKENING AND TAUGHT TO DO LEG LIFTS X 20 BEFORE STANDING. ALSO EDUCATED TO INCREASE FLORINEF TO 0.1 MG BID. PT VERBALIZED UNDERSTANDING
[2018-10-31 16:36] LABS: Potassium 4.6 mmol/L (3.5-5.1)
[2018-10-31 17:05] VITALS: BP 92/66
--- NOTE | 2018-10-31 17:05 | NUR ---
Discharge Instructions See e-MAR for any mediations given with this visit. Patient education given on disease process. Patient verbalized understanding. Previous labs reviewed. Patient discharged in stable condition with after care instructions and follow up appointment. PT ADVISED TO FOLLOW UP IN THE AM FOR ANNUAL ECHO/ DR GARCIA APPT IN 11/04/2018. pT VERBALIZED UNDERSTANDING
== END | disposition home or self-care (01) ==
LOC: CHF HDHVI 14:57
PROVIDERS: ATTEND Internal Medicine Cardiovascular Disease
DX: E87.6 Hypokalemia (principal); R94.4 Abnormal results of kidney function studies; I48.91 Unspecified atrial fibrillation; I95.9 Hypotension, unspecified; Z79.899 Other long term (current) drug therapy
CPT/HCPCS: 36415; 80162; 82565; 84132; 84520; 93005; G0463

== ENCOUNTER → 2018-11-01 | Outpatient (CLI) | payer MEDICAID | END | disposition home or self-care (01) | LOC: Rad HDHVI 10:00 | PROVIDERS: ATTEND Internal Medicine Cardiovascular Disease | DX: I11.0 Hypertensive heart disease with heart failure (principal); I50.43 Acute on chronic combined systolic (congestive) and diastolic (congestive) heart failure | CPT/HCPCS: 93306 ==

== ENCOUNTER → 2018-12-01 | Outpatient (CLI) | payer MEDICAID ==
[~2018-12-01] MED LIST changes: +MAGNESIUM SULFATE 1GM/100ML 100 ML IV ONE; +MVI in SODIUM CHLORIDE 0.9% 1,000 ML IVB ONE; +MVI in SODIUM CHLORIDE 0.9% 1,010 ML ONE; +ONDANSETRON HCL 4 MG/2 ML VIAL ONE
--- NOTE | 2018-12-01 10:52 | NUR ---
REPORTS DIZZINESS AND NOT FEELING WELL. COLOR PALE. IN ATTENDANCE. INITIAL BP HYPOTENSIVE BILATERALLY.
--- NOTE | 2018-12-01 11:00 | NUR ---
IV insertion IV access obtained, via clean sterile technique by inserting 22 gauge catheter at after attempt(s). IV secured properly. No trauma to site. Patient tolerated procedure well. LABS DRAWN AND SENT. CLINIC PROVIDER CONSULTED AND ORDERS RECIEVED.
--- NOTE | 2018-12-01 11:30 | NUR ---
BP IMPROVED. 90/63 ON LEFT ARM. COLOR PINK. RESTING IN CHAIR. INITIAL 12 LEAD COMPLETED AND REVIEWED.
--- NOTE | 2018-12-01 12:00 | NUR ---
LEFT ARM BP 88/65, HR 83 RIGHT ARM 94/59 HR 88
[2018-12-01 12:07] LABS: Basophils # (auto) 0.1 uL; Basophils % (auto) 0.5 % (0.0-2.0); Eosinophils # (auto) 0.1 uL; Eosinophils % (auto) 0.7 % (0.0-7.0); Hematocrit 48.5 % (41.0-53.0); Lymphocytes # (auto) 2.4 uL; Lymphocytes % (auto) 22.7 % (10.0-50.0); Mean Corpuscular Hemoglobin 32.5 pg (28.0-32.0); Mean Corpuscular Hgb Conc. 35.2 g/dL (32.0-36.0); Mean Corpuscular Volume 92.4 fL (80.0-100.0); Monocytes # (auto) 0.8 uL; Monocytes % (auto) 7.6 % (0.0-12.0); Neutrophils # (auto) 7.2 uL; Neutrophils % (auto) 68.5 % (37.0-80.0); Nucleated Red Blood Cells % 0.1 %; Platelet Count (auto) 172 10^3/uL (140-450); Red Blood Cells 5.24 10^6/uL (4.5-5.90); Red Cell Distribution Width 13.4 % (11.8-14.3); White Blood Cell 10.5 10^3/uL (4.4-10.8)
[2018-12-01 12:11] LABS: BUN/Creatinine Ratio 9.3; Calcium 8.9 mg/dL (8.5-10.1); Magnesium 2.3 mg/dL (1.6-2.6); Potassium 4.4 mmol/L (3.5-5.1)
--- NOTE | 2018-12-01 12:30 | NUR ---
EATING LUNCH WITH IN ATTENDANCE
--- NOTE | 2018-12-01 14:00 | NUR ---
INFUSION COMPLETED. PT STILL REPORTS YELLOW DIARRHEA JUST NOW X 1 EPISODE SINCE ARRIVAL. SKIN PINK AND DRY. PT REPORTS FEELING BETTER. IN ATTENDANCE. PLAN TO RETURN TO CLINIC IN AM FOR STAT LABS AND FOLLOWUP ON ABDOMINAL PAIN AND DIARRHEA. RTC AT 0830
--- NOTE | 2018-12-01 14:15 | NUR ---
REPEAT 12 LEAD STILL AFIB FLUTTER POST IV FLUIDS AND POST MAGNESIUM. FOLLOW UP IN AM. Discharge Instructions See e-MAR for any mediations given with this visit. Patient education given on disease process. Patient verbalized understanding. Previous labs reviewed. Patient discharged in stable condition with after care instructions and follow up appointment FOR 12/02/18 MEDICATION ADMINISTRATION MVI BAG 1 LITER START AT 1100/STOP AT 1400 EKG X 2 (INITIAL AT 1100, SECOND AT 1410) MAG SULFATE 1 GRAM IV MIXED WITH MVI BAG
[2018-12-01 14:22] VITALS: BP 101/68
== END | disposition home or self-care (01) ==
LOC: CHF HDHVI 10:28
PROVIDERS: ATTEND Internal Medicine Cardiovascular Disease
DX: I95.9 Hypotension, unspecified (principal); I48.91 Unspecified atrial fibrillation; I48.92 Unspecified atrial flutter; I25.10 Atherosclerotic heart disease of native coronary artery without angina pectoris; E83.40 Disorders of magnesium metabolism, unspecified; I11.0 Hypertensive heart disease with heart failure; I50.42 Chronic combined systolic (congestive) and diastolic (congestive) heart failure; D64.9 Anemia, unspecified; R19.7 Diarrhea, unspecified; R42 Dizziness and giddiness; Z79.899 Other long term (current) drug therapy
CPT/HCPCS: 36415; 80048; 83735; 83880; 85025; 93005; 96365; 96366; G0463; J3411; J3475; J2405

== ENCOUNTER → 2018-12-02 | Outpatient (CLI) | payer MEDICAID ==
[~2018-12-02] MED LIST changes: -HYDR-4683 PO; +HYDR-4833 PO; -MAGNESIUM SULFATE 1GM/100ML 100 ML IV ONE; -MVI in SODIUM CHLORIDE 0.9% 1,000 ML IVB ONE
[2018-12-02 09:29] LABS: Basophils # (auto) 0 uL; Basophils % (auto) 0.6 % (0.0-2.0); Eosinophils # (auto) 0.2 uL; Eosinophils % (auto) 2.4 % (0.0-7.0); Hematocrit 47.6 % (41.0-53.0); Hemoglobin 16.5 g/dL (13.5-17.5); Lymphocytes # (auto) 2.8 uL; Lymphocytes % (auto) 34.5 % (10.0-50.0); Mean Corpuscular Hemoglobin 31.8 pg (28.0-32.0); Mean Corpuscular Hgb Conc. 34.6 g/dL (32.0-36.0); Mean Corpuscular Volume 91.9 fL (80.0-100.0); Monocytes # (auto) 0.8 uL; Monocytes % (auto) 9.3 % (0.0-12.0); Neutrophils # (auto) 4.3 uL; Neutrophils % (auto) 53.2 % (37.0-80.0); Nucleated Red Blood Cells % 0.2 %; Platelet Count (auto) 166 10^3/uL (140-450); Red Blood Cells 5.17 10^6/uL (4.5-5.90); Red Cell Distribution Width 13.3 % (11.8-14.3); White Blood Cell 8.1 10^3/uL (4.4-10.8)
[2018-12-02 09:42] LABS: Calcium 8.6 mg/dL (8.5-10.1)
[2018-12-02 10:50] VITALS: BP 107/80
--- NOTE | 2018-12-02 10:50 | NUR ---
IN TO CLINIC FOR FOLLOWUP FROM DIARRHEA AND DEHYDRATION. PT REPORTS APPROXIMATELY 14 EPISODES OF DIARRHEA DURING NIGHT. OVERALL, STATES THAT HE FEELS BETTER. BP IMPROVED. SKIN PINK AND DRY. IN ATTENDANCE. IV insertion IV access obtained, via clean sterile technique by inserting 22 gauge catheter at after attempt(s). IV secured properly. No trauma to site. Patient tolerated procedure well. LABS DRAWN AND SENT FOR STAT RESULTS. START IV FLUIDS AT 300 ML/HR. UPON RESULT OF STAT LABS THEN IV FLUIDS RESUMED. CONSULTED PROVIDER . REFERRED TO PRIMARY CARE PHYSICIAN FOR ISSUE REGARDING DIARRHEA. IV FLUID HYDRATION STOPPED . DISCHARGED TO SELF CAR Addendum: 12/30/18 at 1423 by Dalila Méndez RN RN ZOFRAN WASTED ON 12/02/18, PATIENT REFUSED MEDICATION
== END | disposition home or self-care (01) ==
LOC: CHF HDHVI 08:59
PROVIDERS: ATTEND Internal Medicine Cardiovascular Disease
DX: E86.0 Dehydration (principal); I11.0 Hypertensive heart disease with heart failure; I50.42 Chronic combined systolic (congestive) and diastolic (congestive) heart failure; I25.10 Atherosclerotic heart disease of native coronary artery without angina pectoris; I48.91 Unspecified atrial fibrillation; D64.9 Anemia, unspecified; R19.7 Diarrhea, unspecified; Z79.899 Other long term (current) drug therapy
CPT/HCPCS: 36415; 80048; 85025; 96365; 96366; G0463; J3411; J3475; J2405

== ENCOUNTER → 2019-08-01 | Outpatient (CLI) | payer MEDICAID ==
[~2019-08-01] VITALS: Ht 30.5 cm; Wt 44.5 kg
[~2019-08-01] MED LIST changes: +CYANOCOBALAMIN (B-12) 1000 MCG/1 ML VIAL IM ONE; +CYANOCOBALAMIN (B-12) 1000 MCG/1 ML VIAL ONE; +MAGN400T40 OR; -MAGN400T5 OR; +MVI in SODIUM CHLORIDE 0.9% 500 ML IVB ONE; -ONDANSETRON HCL 4 MG/2 ML VIAL ONE; +TEMA30CA PO
--- NOTE | 2019-08-01 10:09 | NUR ---
CHF PT ARRIVED AT THE CHF CLINIC WITH LOW BP, FATIGUED AND BLURRED VISION. PT VSS TAKEN MD UPDATED ORDERS RECEIVED AND NOTED. CHEST XRAY ORDERED AND MVI FLUID
--- NOTE | 2019-08-01 10:15 | NUR ---
IV insertion IV access obtained, via clean sterile technique by inserting 22 gauge catheter at after attempt(s). IV secured properly. No trauma to site. Patient tolerated procedure well.
[2019-08-01 11:30] LABS: Basophils # (auto) 0.1 uL; Basophils % (auto) 0.6 % (0.0-2.0); Eosinophils # (auto) 0.2 uL; Eosinophils % (auto) 2.7 % (0.0-7.0); Hematocrit 48.7 % (41.0-53.0); Lymphocytes # (auto) 3.2 uL; Lymphocytes % (auto) 35.1 % (10.0-50.0); Mean Corpuscular Hemoglobin 32.1 pg (28.0-32.0); Mean Corpuscular Hgb Conc. 34.9 g/dL (32.0-36.0); Mean Corpuscular Volume 92.1 fL (80.0-100.0); Monocytes # (auto) 0.5 uL; Monocytes % (auto) 5.7 % (0.0-12.0); Neutrophils # (auto) 5.1 uL; Neutrophils % (auto) 55.9 % (37.0-80.0); Nucleated Red Blood Cells % 0.1 %; Platelet Count (auto) 196 10^3/uL (140-450); Red Blood Cells 5.29 10^6/uL (4.5-5.90); Red Cell Distribution Width 13.2 % (11.8-14.3); White Blood Cell 9.1 10^3/uL (4.4-10.8)
[2019-08-01 11:50] LABS: BUN/Creatinine Ratio 20.8; Calcium 8.9 mg/dL (8.5-10.1); Magnesium 2.1 mg/dL (1.6-2.6); Potassium 4.4 mmol/L (3.5-5.1)
--- NOTE | 2019-08-01 13:45 | NUR ---
IV removal IV DC'd with sterile technique, catheter fully intact. Pressure dressing applied to site. Patient tolerated procedure well. Discharged with aftercare instructions per MD. NOTE: BY FIONA LAND
[2019-08-01 13:53] VITALS: BP 103/77
--- NOTE | 2019-08-01 13:53 | NUR ---
Discharge Instructions See e-MAR for any mediations given with this visit. Patient education given on disease process. Patient verbalized understanding. Previous labs reviewed. Patient discharged in stable condition with after care instructions and follow up appointment. MEDICATIONS MVI IV [id number] VITAMIN B12 IM LEFT DELTOID 1000 MCG LOT # [id number] EXP 01/08
== END | disposition home or self-care (01) ==
LOC: CHF HDHVI 10:05
PROVIDERS: ATTEND Internal Medicine Cardiovascular Disease
DX: I48.91 Unspecified atrial fibrillation (principal); Z79.899 Other long term (current) drug therapy; D64.9 Anemia, unspecified; R53.83 Other fatigue; I95.9 Hypotension, unspecified; I50.9 Heart failure, unspecified
CPT/HCPCS: 36415; 71046; 80048; 80162; 83735; 85025; 96365; 96366; 96372; G0463; J3411; J3420; J3475

== ENCOUNTER → 2019-08-09 | Emergency (ER) | payer MEDICAID ==
[~2019-08-09] VITALS: Ht 205.7 cm; Wt 104.3 kg
[~2019-08-09] MED LIST changes: +ASPirin 81 mg TAB PO ONE; -CYANOCOBALAMIN (B-12) 1000 MCG/1 ML VIAL IM ONE; -CYANOCOBALAMIN (B-12) 1000 MCG/1 ML VIAL ONE; +DIGOXIN (250MCG/ML) 2 ML AMPULE IV ONE; -MVI in SODIUM CHLORIDE 0.9% 1,010 ML ONE; -MVI in SODIUM CHLORIDE 0.9% 500 ML IVB ONE; +SODIUM CHLORIDE 0.9% 500 ML IV ONE
[2019-08-09 14:33] LABS: Basophils # (auto) 0 uL; Basophils % (auto) 0.5 % (0.0-2.0); Eosinophils # (auto) 0.3 uL; Eosinophils % (auto) 3.9 % (0.0-7.0); Hematocrit 46.8 % (41.0-53.0); Hemoglobin 16.3 g/dL (13.5-17.5); Lymphocytes # (auto) 2.5 uL; Lymphocytes % (auto) 34.7 % (10.0-50.0); Mean Corpuscular Hemoglobin 32.3 pg (28.0-32.0); Mean Corpuscular Hgb Conc. 34.7 g/dL (32.0-36.0); Mean Corpuscular Volume 92.9 fL (80.0-100.0); Monocytes # (auto) 0.6 uL; Monocytes % (auto) 7.6 % (0.0-12.0); Neutrophils # (auto) 3.9 uL; Neutrophils % (auto) 53.3 % (37.0-80.0); Nucleated Red Blood Cells % 0.2 %; Platelet Count (auto) 192 10^3/uL (140-450); Red Blood Cells 5.04 10^6/uL (4.5-5.90); Red Cell Distribution Width 13.8 % (11.8-14.3); White Blood Cell 7.3 10^3/uL (4.4-10.8)
[2019-08-09 14:47] LABS: Albumin 3.3 g/dL (3.4-5.0); Anion Gap 2 (5-15); Blood Urea Nitrogen 23 mg/dL (7-18); Calcium 8.4 mg/dL (8.5-10.1); Carbon Dioxide 28 mmol/L (21-32); Chloride 107 mmol/L (98-107); Glucose 133 mg/dL (74-106); Sodium 137 mmol/L (136-145)
[2019-08-09 14:52] LABS: Alanine Aminotransferase 36 U/L (16-61); Alkaline Phosphatase 80 U/L (45-117); Aspartate Aminotransferase 16 U/L (15-37); BUN/Creatinine Ratio 20.9; GFR African American 87 mL/min; GFR Non-African American 72 mL/min; Total Protein 6.5 g/dL (6.4-8.2)
[2019-08-09 15:42] LABS: INR 1.09 (0.9-1.15); Partial Thromboplastin Time 32.6 sec (23.64-32.05)
[2019-08-09 20:30] VITALS: BP 130/90
== END | disposition home or self-care (01) ==
LOC: ER 13:33
DX: I48.91 Unspecified atrial fibrillation (principal); I48.92 Unspecified atrial flutter; R00.2 Palpitations; I11.0 Hypertensive heart disease with heart failure; I50.42 Chronic combined systolic (congestive) and diastolic (congestive) heart failure; E78.5 Hyperlipidemia, unspecified; Z87.891 Personal history of nicotine dependence; Z79.899 Other long term (current) drug therapy
CPT/HCPCS: 36415; 71045; 80053; 83735; 83880; 84443; 84484; 85025; 85610; 85730; 93005; 96374; 99285; J1160; J7040

== ENCOUNTER → 2019-11-29 | Outpatient (CLI) | payer MEDICAID ==
[~2019-11-29] MED LIST changes: +AMIO200T33 PO; +ASCO500T11 PO; -ASPI-231 PO; -ASPirin 81 mg TAB PO ONE; +CEPH500C PO; +CHOL50007 PO; +CYAN1TAB11 SL; +DIGO0.25 PO; -DIGOXIN (250MCG/ML) 2 ML AMPULE IV ONE; +MULT-928 PO; +OMEGCAP28 PO; -SODIUM CHLORIDE 0.9% 500 ML IV ONE; -ZOLP5TAB5 PO
== END | disposition home or self-care (01) ==
LOC: Rad HDHVI 09:59
PROVIDERS: ATTEND Internal Medicine Cardiovascular Disease
DX: I48.91 Unspecified atrial fibrillation (principal); E78.00 Pure hypercholesterolemia, unspecified; Z95.0 Presence of cardiac pacemaker
CPT/HCPCS: 93306

== ENCOUNTER → 2020-02-09 | Outpatient (CLI) | payer MEDICAID ==
[2020-02-09 10:20] VITALS: BP 91/61
--- NOTE | 2020-02-09 10:20 | NUR ---
Patient into clinic for scheduled preop appt.
[2020-02-09 11:00] VITALS: BP 127/77
--- NOTE | 2020-02-09 11:00 | NUR ---
Pre-Op Discharge Summary: See e-MAR for any medications given for this visit. Pre-op orders received and carried out per MD of EKG, LABS and chest xrays. Patient given a copy of EKG with instructions to go to [facility] out patient for further follow up care.
[2020-02-09 12:22] LABS: Basophils # (auto) 0 10 ^3/uL (0-0.2); Basophils % (auto) 0.4 % (0.0-2.0); Eosinophils # (auto) 0.3 10 ^3/uL (0-0.8); Eosinophils % (auto) 3.1 % (0.0-7.0); Hemoglobin 15.5 g/dL (13.5-17.5); Lymphocytes # (auto) 3.1 10 ^3/uL (0.4-5.4); Lymphocytes % (auto) 32.1 % (10.0-50.0); Mean Corpuscular Hemoglobin 32.6 pg (28.0-32.0); Mean Corpuscular Hgb Conc. 34.6 g/dL (32.0-36.0); Mean Corpuscular Volume 94.2 fL (80.0-100.0); Monocytes # (auto) 0.6 10 ^3/uL (0-1.3); Monocytes % (auto) 6.2 % (0.0-12.0); Neutrophils # (auto) 5.7 10 ^3/uL (1.6-8.6); Neutrophils % (auto) 58.2 % (37.0-80.0); Nucleated Red Blood Cells % 0.2 %; Platelet Count (auto) 188 10^3/uL (140-450); Red Blood Cells 4.77 10^6/uL (4.5-5.90); Red Cell Distribution Width 13.4 % (11.8-14.3); White Blood Cell 9.7 10^3/uL (4.4-10.8)
[2020-02-09 12:33] LABS: Potassium 4.5 mmol/L (3.5-5.1)
[2020-02-09 12:35] LABS: BUN/Creatinine Ratio 13.6
[2020-02-09 13:14] LABS: INR 1.25 (0.9-1.15); Partial Thromboplastin Time 41.9 sec (23.0-31.2)
== END | disposition home or self-care (01) ==
LOC: Rad HDHVI 10:04
PROVIDERS: ATTEND Internal Medicine Cardiovascular Disease
DX: Z01.812 Encounter for preprocedural laboratory examination (principal); K44.9 Diaphragmatic hernia without obstruction or gangrene; I70.0 Atherosclerosis of aorta; M47.814 Spondylosis without myelopathy or radiculopathy, thoracic region; I50.9 Heart failure, unspecified; I47.2 Ventricular tachycardia; I49.5 Sick sinus syndrome; Z95.0 Presence of cardiac pacemaker
CPT/HCPCS: 36415; 71046; 80048; 85025; 85610; 85730; 93005; G0463

== ENCOUNTER 2020-02-15 09:14 | Day surgery (SDC) | payer MEDICAID ==
[~2020-02-15] VITALS: Ht 205.7 cm; Wt 127.0 kg
[~2020-02-15 09:14] MED LIST changes: -DIGO0.1220 PO; -FLUD0.1T2 PO; -HYDR-4833 PO; -SOTA80TA PO
[2020-02-15] MEDS ORDERED: MIDAZOLAM HCL 1MG/1ML-2 ML VIAL ONE (09:54)
[2020-02-15] MEDS ORDERED: LIDOCAINE 2%HCL (LOCAL ANESTH.) INJ 20ML MDV ONE (09:54)
[2020-02-15] MEDS ORDERED: fentaNYL CITRATE 100 MCG/2 ML VL ONE (09:54)
[2020-02-15] MEDS ORDERED: ANGIOMAX 250 MG VIAL IV ONE (09:54)
[2020-02-15] MEDS ORDERED: SODIUM CHL 0.9% 0 ML ONE (09:54)
[2020-02-15] MEDS ORDERED: ACETAMINOPHEN 500 MG TAB PO PRN (11:10)
== END 2020-02-15 13:31 | disposition home or self-care (01) ==
LOC: CATH 09:14
PROVIDERS: ATTEND Internal Medicine Cardiovascular Disease
DX: I25.10 Atherosclerotic heart disease of native coronary artery without angina pectoris (principal); I10 Essential (primary) hypertension; E78.5 Hyperlipidemia, unspecified; I25.2 Old myocardial infarction; E11.9 Type 2 diabetes mellitus without complications; Z87.891 Personal history of nicotine dependence; Z98.890 Other specified postprocedural states; Z79.899 Other long term (current) drug therapy; Z20.828 Contact with and (suspected) exposure to other viral communicable diseases; Z96.89 Presence of other specified functional implants; Z79.84 Long term (current) use of oral hypoglycemic drugs
CPT/HCPCS: 93458; C1751; C1760; C1894; J1644; J2250; J3010; J7030; U0003; 99152

== ENCOUNTER → 2020-11-19 | Outpatient (CLI) | payer MEDICAID ==
[~2020-11-19] VITALS: Ht 205.7 cm; Wt 123.4 kg
[~2020-11-19] MED LIST changes: +ADENOSINE 104 MG in GIVE UN-DILUTED 0 ML IV ONE; +ADENOSINE 90 MG/30 ML INJ IV ONE
== END | disposition home or self-care (01) ==
LOC: Rad HDHVI 12:55
PROVIDERS: ATTEND Internal Medicine Cardiovascular Disease
DX: I48.91 Unspecified atrial fibrillation (principal); I10 Essential (primary) hypertension; R00.2 Palpitations; R06.01 Orthopnea; E78.5 Hyperlipidemia, unspecified; R07.89 Other chest pain; Z95.810 Presence of automatic (implantable) cardiac defibrillator
CPT/HCPCS: 78452; 93005; 96374; 96375; A9500; J0153

== ENCOUNTER → 2021-01-01 | Outpatient (CLI) | payer MEDICAID ==
[~2021-01-01] MED LIST changes: -ADENOSINE 104 MG in GIVE UN-DILUTED 0 ML IV ONE; -ADENOSINE 90 MG/30 ML INJ IV ONE
== END | disposition home or self-care (01) ==
LOC: Rad HDHVI 14:28
PROVIDERS: ATTEND Internal Medicine Cardiovascular Disease
DX: I67.82 Cerebral ischemia (principal); R51.9 Headache, unspecified
CPT/HCPCS: 70450

== ENCOUNTER → 2021-06-02 | Outpatient (CLI) | payer MEDICARE, MEDICAID ==
[~2021-06-02] MED LIST changes: +IOHEXOL 350 MG/ML 100ML IJ ONE
[2021-06-02 10:10] VITALS: BP 123/80
[2021-06-02 12:00] VITALS: BP 131/87
== END | disposition home or self-care (01) ==
LOC: Rad HDHVI 10:03
PROVIDERS: ATTEND Internal Medicine Cardiovascular Disease
DX: R94.4 Abnormal results of kidney function studies (principal)
CPT/HCPCS: 36415; 82565; G0463; Q9967

== ENCOUNTER → 2022-01-16 | Outpatient (CLI) | payer MEDICARE, MEDICAID ==
[~2022-01-16] VITALS: Ht 165.1 cm; Wt 130.0 kg
[~2022-01-16] MED LIST changes: +CYANOCOBALAMIN (B-12) 1000 MCG/1 ML VIAL IM ONE; +CYANOCOBALAMIN (B-12) 1000 MCG/1 ML VIAL ONE; -IOHEXOL 350 MG/ML 100ML IJ ONE; +SODIUM CHLORIDE 0.9% 250 ML IV ONE
[2022-01-16 13:37] LABS: Basophils # (auto) 0 10 ^3/uL (0-0.2); Basophils % (auto) 0.6 % (0.0-2.0); Eosinophils # (auto) 0.1 10 ^3/uL (0-0.8); Eosinophils % (auto) 2.2 % (0.0-7.0); Hematocrit 45.4 % (41.0-53.0); Hemoglobin 14.8 g/dL (13.5-17.5); Lymphocytes # (auto) 2.2 10 ^3/uL (0.4-5.4); Lymphocytes % (auto) 34.9 % (10.0-50.0); Mean Corpuscular Hemoglobin 31.6 pg (28.0-32.0); Mean Corpuscular Hgb Conc. 32.7 g/dL (32.0-36.0); Mean Corpuscular Volume 96.9 fL (80.0-100.0); Monocytes # (auto) 0.5 10 ^3/uL (0-1.3); Monocytes % (auto) 7.4 % (0.0-12.0); Neutrophils # (auto) 3.5 10 ^3/uL (1.6-8.6); Neutrophils % (auto) 54.9 % (37.0-80.0); Red Blood Cells 4.68 10^6/uL (4.5-5.90); Red Cell Distribution Width 13.7 % (11.8-14.3); White Blood Cell 6.3 10^3/uL (4.4-10.8)
[2022-01-16 13:57] LABS: Albumin 3.7 g/dL (3.4-5.0); BUN/Creatinine Ratio 22.5; Calcium 8.7 mg/dL (8.5-10.1); Magnesium 2.3 mg/dL (1.6-2.6); Potassium 4.7 mmol/L (3.5-5.1)
[2022-01-16 14:00] LABS: Bilirubin, Total 0.9 mg/dL (0.2-1.0); Total Protein 6.8 g/dL (6.4-8.2)
[2022-01-16 14:33] VITALS: BP 116/72
== END | disposition home or self-care (01) ==
LOC: CHF HDHVI 10:51
PROVIDERS: ATTEND Internal Medicine Cardiovascular Disease
DX: I50.23 Acute on chronic systolic (congestive) heart failure (principal); E55.9 Vitamin D deficiency, unspecified; I77.819 Aortic ectasia, unspecified site
CPT/HCPCS: 36415; 80053; 80162; 82306; 83735; 83880; 85025; 93005; 96360; 96361; 96372; G0463; J3420; J7050; 96366

== ENCOUNTER → 2022-01-20 | Outpatient (CLI) | payer MEDICARE, MEDICAID ==
[~2022-01-20] MED LIST changes: -CYANOCOBALAMIN (B-12) 1000 MCG/1 ML VIAL IM ONE; -CYANOCOBALAMIN (B-12) 1000 MCG/1 ML VIAL ONE; -SODIUM CHLORIDE 0.9% 250 ML IV ONE
== END | disposition home or self-care (01) ==
LOC: Rad HDHVI 09:06
PROVIDERS: ATTEND Internal Medicine Cardiovascular Disease
DX: I08.1 Rheumatic disorders of both mitral and tricuspid valves (principal); I77.819 Aortic ectasia, unspecified site; R06.02 Shortness of breath
CPT/HCPCS: 93306

== ENCOUNTER → 2023-01-18 | Outpatient (CLI) | payer MEDICARE, MEDICAID ==
[~2023-01-18] VITALS: Ht 205.7 cm; Wt 133.4 kg
[~2023-01-18] MED LIST changes: +ADENOSINE 112 MG in GIVE UN-DILUTED 0 ML IV ONE; +ADENOSINE 90 MG/30 ML INJ IV ONE
== END | disposition home or self-care (01) ==
LOC: Rad HDHVI 09:25
PROVIDERS: ATTEND Internal Medicine Cardiovascular Disease
DX: I10 Essential (primary) hypertension (principal); E78.5 Hyperlipidemia, unspecified; R06.02 Shortness of breath; R07.89 Other chest pain; I49.5 Sick sinus syndrome; I48.0 Paroxysmal atrial fibrillation; I25.2 Old myocardial infarction; Z82.49 Family history of ischemic heart disease and other diseases of the circulatory system; Z95.810 Presence of automatic (implantable) cardiac defibrillator
CPT/HCPCS: 78452; 93005; 96374; 96375; A9500; J0153

== ENCOUNTER → 2023-08-26 | Outpatient (CLI) | payer MEDICARE, MEDICAID ==
[~2023-08-26] MED LIST changes: -ADENOSINE 112 MG in GIVE UN-DILUTED 0 ML IV ONE; -ADENOSINE 90 MG/30 ML INJ IV ONE
== END | disposition home or self-care (01) ==
LOC: Rad HDHVI 10:00
PROVIDERS: ATTEND Internal Medicine Cardiovascular Disease
DX: I11.9 Hypertensive heart disease without heart failure (principal); R00.2 Palpitations
CPT/HCPCS: 93306

== ENCOUNTER → 2024-02-07 | Outpatient (CLI) | payer MEDICARE, MEDICAID | END | disposition home or self-care (01) | LOC: Rad HDHVI 12:29 | PROVIDERS: ATTEND Internal Medicine Cardiovascular Disease | DX: I10 Essential (primary) hypertension (principal) | CPT/HCPCS: 93880 ==

== ENCOUNTER → 2024-02-09 | Outpatient (CLI) | payer MEDICARE, MEDICAID ==
[~2024-02-09] VITALS: Ht 205.7 cm; Wt 129.3 kg
[~2024-02-09] MED LIST changes: +ADENOSINE 109 MG in GIVE UN-DILUTED 0 ML IV ONE; +ADENOSINE 90 MG/30 ML INJ IV ONE
== END | disposition home or self-care (01) ==
LOC: Rad HDHVI 13:25
PROVIDERS: ATTEND Internal Medicine Cardiovascular Disease
DX: I10 Essential (primary) hypertension (principal); I48.91 Unspecified atrial fibrillation; R06.02 Shortness of breath; E78.00 Pure hypercholesterolemia, unspecified; I49.5 Sick sinus syndrome; I42.0 Dilated cardiomyopathy; I25.10 Atherosclerotic heart disease of native coronary artery without angina pectoris
CPT/HCPCS: 78452; 93005; 96374; 96375; A9500; J0153